=== PATIENT | female | born 1990 | race Asian ===

== ENCOUNTER 2021-05-12 05:00 | Inpatient (IN) | payer MEDICAID ==
[~2021-05-12] VITALS: Ht 149.9 cm; Wt 55.3 kg
[2021-05-12] MEDS ORDERED: RHO(D) IMMUNE GLOBULIN 300 MCG/SYR IM ONE (06:30)
[2021-05-12] MEDS ORDERED: DEXT 5%/LACTATED RINGERS 1,000 ML IV SCH (06:30)
[2021-05-12] MEDS ORDERED: DEXT 5%/LR + PITOCIN 20UNITS/L 1,000 ML IV SCH ×2 (06:30→08:15)
[2021-05-12 07:15] LABS: BASOPHILS % 0.1 % (0.0-2.0); EOSINOPHILS % 0.5 % (0.0-5.0); HEMATOCRIT. 32.3 % (36.0-48.0); HEMOGLOBIN. 11.3 g/dL (12.0-16.0); LYMPHOCYTES % 18.7 % (20.0-50.0); MEAN CORPUSCULAR HEMOGLOBIN 32.6 pg (28.0-32.0); MEAN CORPUSCULAR VOLUME 93.1 fL (81.0-99.0); MEAN PLATELET VOLUME 8.2 fl (7.4-10.4); MONOCYTES % 5.7 % (2.0-8.0); PLATELET 301 x1000/uL (130-400); RED BLOOD CELL COUNT 3.47 mill/uL (4.2-5.4); RED CELL DISTRIBUTION WIDTH 14.5 % (11.6-14.6)
[2021-05-12 07:30] LABS: INR 0.9; PARTIAL THROMBOPLASTIN TIME 26.1 sec (23.4-31.0)
[2021-05-12] MEDS ORDERED: HEMORRHOIDAL SUPP PR PRN (08:15)
[2021-05-12] MEDS ORDERED: ACETAMINOPHEN WITH CODEINE 300/30MG TABLET PO PRN (08:15)
[2021-05-12] MEDS ORDERED: LANOLIN OINT 7GM TUBE TOP PRN (08:15)
[2021-05-12] MEDS ORDERED: GLYCERIN/WITCH HAZEL LEAF MEDICATED PAD TOP PRN (08:15)
[2021-05-12] MEDS ORDERED: BISACODYL 10MG SUPP PR PRN (08:15)
[2021-05-12] MEDS ORDERED: METHYLERGONOVINE MALEATE 0.2 MG/ML IM PRN (08:15)
[2021-05-12] MEDS ORDERED: RHO(D) IMMUNE GLOBULIN 300 MCG/SYR IM PRN (08:15)
[2021-05-12] MEDS ORDERED: BENZOCAINE/LANOLIN/ALOE VERA SPRAY TOP PRN (08:15)
[2021-05-12] MEDS ORDERED: DIPHENHYDRAMINE 25MG CAPSULE PO PRN (08:15)
[2021-05-12] MEDS ORDERED: IBUPROFEN 400MG TABLET PO PRN (08:15)
[2021-05-12] MEDS ORDERED: METHYLERGONOVINE MALEATE 0.2 MG/ML IM NR (08:27)
[2021-05-12] MEDS: IBUPROFEN 800MG TABLET PO PRN ×2 (08:34→18:14)
[2021-05-12 08:50] VITALS: BP 102/50
[2021-05-12] MEDS: MAGNESIUM/ALUMINUM HYDROXIDE/SIMETHICONE 30ML UDC PO SCH ×4 (09:00→23:09)
[2021-05-12] MEDS: SIMETHICONE 80MG TABLET CHEW PO SCH ×4 (09:00→23:10)
[2021-05-12 10:23] LABS: BASOPHILS % 0.1 % (0.0-2.0); HEMATOCRIT. 32.9 % (36.0-48.0); HEMOGLOBIN. 11.4 g/dL (12.0-16.0); MEAN CORPUSCULAR HEMOGLOBIN 32.4 pg (28.0-32.0); MEAN PLATELET VOLUME 7.7 fl (7.4-10.4); MONOCYTES % 2.9 % (2.0-8.0); PLATELET 284 x1000/uL (130-400); RED BLOOD CELL COUNT 3.53 mill/uL (4.2-5.4); RED CELL DISTRIBUTION WIDTH 14.6 % (11.6-14.6)
[2021-05-12 10:44] LABS: CLARITY URINE TURBID (CLEAR); KETONES URINE 2+ (NEGATIVE); LEUKOCYTE ESTERASE URINE 2+ (NEGATIVE); NITRITE URINE POSITIVE (NEGATIVE); OCCULT BLOOD URINE 3+ (NEGATIVE); PROTEIN URINE 2+ (NEGATIVE); SPECIFIC GRAVITY URINE 1.014 (1.005-1.030)
[2021-05-12 10:49] LABS: COLOR URINE BLOODY (YELLOW)
[2021-05-12 10:58] LABS: *AMPHETAMINES SCREEN URINE NEGATIVE (NEGATIVE); *BARBITURATES SCREEN URINE NEGATIVE (NEGATIVE); *BENZODIAZEPINES SCREEN URINE NEGATIVE (NEGATIVE); *COCAINE SCREEN URINE NEGATIVE (NEGATIVE)
[2021-05-12 10:59] LABS: CANNABINOID URINE SCREEN NEGATIVE (NEGATIVE); METHADONE URINE SCREEN NEGATIVE (NEGATIVE); OPIATES URINE SCREEN NEGATIVE (NEGATIVE); PHENCYCLIDINE URINE SCREEN NEGATIVE (NEGATIVE)
[2021-05-12] MEDS: PRENATAL VIT/FE FUMARATE/FA TABLET PO SCH (12:51)
[2021-05-12] MEDS: METHYLERGONOVINE MALEATE 0.2MG TABLET PO SCH ×2 (12:51→19:01)
[2021-05-12] MEDS ORDERED: TETANUS, DIPHTHERIA, PERTUSSIS VAC/PF 0.5ML (>10YR OLD) IM ONE (13:30)
[2021-05-12 16:10] VITALS: BP 94/49
[2021-05-12] MEDS ORDERED: DOCUSATE SODIUM 100MG CAPSULE PO SCH (21:00)
[2021-05-12 22:00] VITALS: BP 115/77
[2021-05-13 04:48] VITALS: BP 111/63
[2021-05-13] MEDS ORDERED: IBUP-2030 PO (07:07)
[2021-05-13] MEDS ORDERED: FERR-63 PO (07:07)
[2021-05-13 08:30] VITALS: BP 112/68
[2021-05-13] MEDS: MAGNESIUM/ALUMINUM HYDROXIDE/SIMETHICONE 30ML UDC PO SCH (08:39)
[2021-05-13] MEDS: SIMETHICONE 80MG TABLET CHEW PO SCH (08:39)
[2021-05-13] MEDS: FERROUS SULFATE 325MG TABLET PO SCH ×2 (08:40→11:32)
[2021-05-13] MEDS: PRENATAL VIT/FE FUMARATE/FA TABLET PO SCH ×2 (08:40→11:32)
[2021-05-13] MEDS: IBUPROFEN 800MG TABLET PO PRN (11:32)
== END 2021-05-13 13:45 | disposition home or self-care (01) | DRG 560 ==
LOC: OBSVTOIN 05:00 → 8 EST LDRP 05:00 → 8EST 19:01
PROVIDERS: ADMIT Obstetrics & Gynecology; ATTEND Obstetrics & Gynecology
PROC: 10E0XZZ Delivery of Products of Conception, External Approach (ICD-10-PCS; principal; 2021-05-12)
DX: O60.14X0 Preterm labor third trimester with preterm delivery third trimester, not applicable or unspecified (principal); Z37.0 Single live birth; O62.3 Precipitate labor; Z20.822 Contact with and (suspected) exposure to COVID-19; Z3A.33 33 weeks gestation of pregnancy
CPT/HCPCS: 36415; 80305; 81003; 85025; 86592; 86703; 86850; 86900; 87340; 87426; 90715; 99281; G0378; J2590